=== PATIENT | female | born 1965 | race African-American/Black ===

== ENCOUNTER → 2016-08-11 | Outpatient (CLI) | payer BC ==
--- NOTE | ~2016-08-11 | US98 ---
[facility] A Service of [facility] & [facility] RADIOLOGY TEXT RESULTS PATIENT: CRIS GASCA LOCATION: [facility] : 69 UNIT #: [id number] AGE: [address]: Melissa Rob SEX: F ORDER DR: [id number] [facility] [address] [place], [place] [address] [id number] O MR#: [id number] Acc #: [id number] NAME: CRIS GASCA : 1965 SEX: F STUDY DATE/TIME: 08/11/2016 8:44 UNIT: [facility] ROOM: STUDY DESCRIPTION: US Pelvic Non-OB Complete Attending Physician: Melissa Rob A.P.R.N. Referring Physician: Melissa Rob A.P.R.N. Ordering Physician: Melissa Rob A.P.R.N. Primary Care Physician: Melissa Rob A.P.R.N. MEDICAL IMAGING REPORT This report is preliminary unless electronic signature is present EXAM Ultrasound of the pelvis transabdominal and transvaginal technique 08/11/2016 INDICATIONS 50-year-old female with a leiomyoma of the uterus. Pain in the back. History of fibroids. History of ectopic . TECHNIQUE Sonographic imaging of the pelvis was performed transabdominally and transvaginally for better evaluation of the adnexa and ovarian structures. COMPARISON STUDIES Correlation is made with CT 04/21/2014. FINDINGS TRANSABDOMINAL: The uterus is visualized but better characterized transvaginally. Neither ovary was seen transabdominally. TRANSVAGINAL: Uterus is retroverted. Dimension is 9.5 x 6.8 x 6.8 cm. Endometrial stripe measures 7 mm, within normal range for a premenopausal female. There are multiple uterine fibroids that appear to represent intramural fibroids. Five were measured by the technologist. These measure up to about 2.5-3 cm. The ovaries are unremarkable. The right measures up to 3 cm long axis and the left measures up to 2.8 cm. Follicles are present in both ovaries. Both ovaries demonstrate good flow at the time of the study. No adnexal mass, free fluid or drainable fluid collection. IMPRESSION 1. Leiomyomatous changes of the uterus which is retroverted. These appear to represent intramural fibroids. [facility] A Service of [facility] & [facility] RADIOLOGY TEXT RESULTS PATIENT: CRIS GASCA LOCATION: [facility] : 69 UNIT #: [id number] AGE: [address]: Melissa Rob SEX: F ORDER DR: 2. No evidence of endometrial thickening in this premenopausal patient. 3. Ovaries are unremarkable. Dictated by... Reynaldo Celis M.D. THIS IS AN ELECTRONICALLY VERIFIED REPORT Reynaldo Celis M.D. at 08/14/2016 2:08 PM Michelle TD: 08/11/2016 19:01 JOB #: [id number] MEDICAL IMAGING REPORT Page 1 of 1 COPY
== END | disposition home or self-care (01) ==
LOC: CWCC 07:59
DX: D25.9 Leiomyoma of uterus, unspecified (principal); N85.4 Malposition of uterus; D50.9 Iron deficiency anemia, unspecified; E55.9 Vitamin D deficiency, unspecified; F17.200 Nicotine dependence, unspecified, uncomplicated; M54.5 Low back pain; K59.04 Chronic idiopathic constipation
CPT/HCPCS: 76830; 76856